=== PATIENT | male | born 1995 | race African-American/Black ===

== ENCOUNTER 2019-11-11 08:08 | Emergency (ER) | payer BC, OTHER ==
[~2019-11-11] VITALS: Ht 190.5 cm; Wt 69.0 kg
[2019-11-11] MEDS ORDERED: IBUPROFEN 800MG TABLET PO ONE (11:00)
[2019-11-11 11:16] VITALS: BP 90/52
== END 2019-11-11 11:18 | disposition home or self-care (01) ==
LOC: ER 08:59
DX: M72.2 Plantar fascial fibromatosis (principal); J45.909 Unspecified asthma, uncomplicated
CPT/HCPCS: 99282; Z7610